=== PATIENT | male | born 1995 ===

== ENCOUNTER 2021-02-23 10:05 | Day surgery (SDC) | payer OTHER ==
[2021-02-23] MEDS ORDERED: PERCOCET 5-3251 EACH PO (14:58)
== END 2021-02-23 23:15 | disposition home or self-care (01) ==
LOC: AMB-ENDOS 10:05
PROVIDERS: ATTEND Surgery
DX: K62.0 Anal polyp (principal); K64.8 Other hemorrhoids; Z20.822 Contact with and (suspected) exposure to COVID-19